=== PATIENT | male | born 1960 | race Caucasian/White ===

== ENCOUNTER → 2017-09-15 | Outpatient (CLI) | payer BC ==
--- NOTE | 2017-09-15 14:03 | CT ---
EXAMINATION TYPE: CT abdomen pelvis wo con DATE OF EXAM: 09/15/2017 COMPARISON: NONE HISTORY: Frequent urination, gross hematuria, Lt groin pain CT DLP: 215.5 mGycm Automated exposure control for dose reduction was used. TECHNIQUE: Helical acquisition of images from the lung bases through the pelvis. FINDINGS: Lack of contrast could compromise sensitivity. LUNG BASES: Minimal basilar atelectatic changes or scarring noted, there is extensive emphysematous c hange, no pleural or pericardial effusion. The heart is small. AORTA: No significant abnormality is appreciated. LIVER/GB: The liver is enlarged. Gallbladder is unremarkable. PANCREAS: No significant abnormality is seen. SPLEEN: No significant abnormality is seen. ADRENALS: No significant abnormality is seen. KIDNEYS: No significant abnormality is seen. REPRODUCTIVE ORGANS: Prostate is enlarged and shows associated calcification. URINARY BLADDER: There is abnormal wall thickening within the bladder, difficult to exclude a mucosa l lesion, findings may be due to chronic outlet obstruction. BOWEL: No significant abnormality is seen. FREE AIR: No Free Air is visible. ASCITES: None visible. PELVIC ADENOPATHY: None visualized. RETROPERITONEAL ADENOPATHY: No Retroperitoneal Adenopathy visible. OSSEOUS STRUCTURES: There is a spinal curvature present. Mild degenerative disc changes in the visua lized spine. There is a disc bulge at L4-5, L5-S1. IMPRESSION: THERE MAY BE CHRONIC BLADDER OUTLET OBSTRUCTION. DIFFICULT TO EXCLUDE A MUCOSAL LESION. CONSIDER UROL OGY CONSULT. CORRELATE TO EXCLUDE CYSTITIS. NONCONTRAST EXAM, ADDITIONAL FINDINGS ABOVE.
== END | disposition home or self-care (01) ==
LOC: RADCTMAIN 12:23
PROVIDERS: ATTEND Nurse Practitioner Adult Health
DX: N20.0 Calculus of kidney (principal)
CPT/HCPCS: 74176

== ENCOUNTER → 2017-09-22 | Outpatient (CLI) | payer BC ==
--- NOTE | 2017-09-22 10:04 | US ---
EXAMINATION TYPE: US prostate transrectal DATE OF EXAM: 09/22/2017 COMPARISON: Prostate ultrasound July 08, 2014. CT abdomen and pelvis September 15, 2017. CLINICAL HISTORY: N40.0 Large Prostate. Hx of enlarged prostate. Increase in urine frequency x 1 wee k. This examination was performed using the transrectal probe. EXAM MEASUREMENTS: Gland Size: 4.9 x 4.5 x 2.6 cm Volume: 29.53 ml Predicted PSA: 3.5 Actual PSA (if available):1.1 Peripheral zone appears heterogenous with no prominent masses or lesions identified. Calcifications seen in central zone. Seminal vesicles are unremarkable initially. Prostate gland remains upper limits of normal in size to mildly enlarged with calcifications and central zone. No worrisome nodules are identified. IMPRESSION: Prostate gland is upper limits of normal to mildly enlarged without discrete nodule. No significant change from prior ultrasound.
== END | disposition home or self-care (01) ==
LOC: RADUSMAIN 08:04
PROVIDERS: ATTEND Nurse Practitioner Adult Health
DX: N40.0 Benign prostatic hyperplasia without lower urinary tract symptoms (principal)
CPT/HCPCS: 76872

== ENCOUNTER → 2019-01-02 | Outpatient (CLI) | payer BC ==
--- NOTE | 2019-01-02 09:52 | CTL ---
EXAMINATION TYPE: CT Low Dose Lung DATE OF EXAM ORDERED: 01/02/2019 HISTORY: Long-term tobacco use.. Lung cancer screening CT DLP: [address] CTDI: 1.84 mGy Automated exposure control for dose reduction was used. SCREENING VISIT: First study COMPARISON: None TECHNIQUE: Low dose computed tomography scan was performed through the chest at 1 mm thick sections a nd reconstructed images in the coronal plane at [address] DIAGNOSTIC QUALITY: Satisfactory FINDINGS: LUNG NODULES: Present, detailed below: A 5 x 3 mm nodule right midlung axial image 184. LUNGS: COPD: Severity: Moderate to borderline severe most prominent in the upper lungs Fibrosis: Severity: Moderate to severe apical changes with bulla and bleb formation. Mild by basilar linear scarring. Lymph nodes: No greater than 1 cm. Other findings: Ascending aorta measures up to 3.5 cm diameter axial image 147. Adjacent main pulmona ry artery measures 2.1 cm in diameter. BILATERAL PLEURAL SPACE: Effusion: None Calcification: None Thickening: None Pneumothorax: None HEART: Heart Size: Normal Coronary calcification: None Pericardial effusion: None OTHER FINDINGS: Upper abdomen: Debris-filled stomach suggest recent meal ingestion. Bony thorax: Dextroconvex scoliosis centered in the mid thoracic spine. Mild to moderate multilevel s purring in the thoracic spine. Supraclavicular region: No suspicious abnormality. Other: None. IMPRESSION: Moderate emphysematous change with 5 x 3 mm right midlung nodule. FOLLOW UP CT CHEST RECOMMENDATION: Annual low-dose lung screening CT. CT LUNG RAD: Lung-Rad 2 Benign Appearance or Behavior
== END | disposition home or self-care (01) ==
LOC: RADCTMAIN 09:09
PROVIDERS: ATTEND Family Medicine
DX: Z12.2 Encounter for screening for malignant neoplasm of respiratory organs (principal); J43.9 Emphysema, unspecified; F17.210 Nicotine dependence, cigarettes, uncomplicated

== ENCOUNTER → 2021-06-29 | Outpatient (CLI) | payer BC ==
[~2021-06-29] MED LIST: SODIUM CHLORIDE 0.9% 50 ML IVPB ONE; SODIUM CHLORIDE 0.9% 500 ML 500 ML in EMPTY BAG 1 BAG IV PRN; SOTROVIMAB (EUA) 500 MG in SODIUM CHLORIDE 0.9% 100 ML IVPB ONE
[2021-06-29 16:20] VITALS: TEMP 98.2
[2021-06-29 16:47] VITALS: RESP 16
[2021-06-29 17:14] VITALS: BP 113/69; PULSE 90
== END ==
LOC: PROCWHC3 16:02
PROVIDERS: ATTEND Physician Assistant
DX: U07.1 COVID-19 (principal)
CPT/HCPCS: 96360; Q0247; M0247

== ENCOUNTER → 2022-07-26 | Outpatient (CLI) | payer BC ==
[2022-07-26 17:55] LABS: Basophils # (A) 0.08 X 10*3/uL (0.00-0.10); Basophils % (A) 1.3 %; Eosinophils # (A) 0.27 X 10*3/uL (0.04-0.35); Eosinophils % (A) 4.2 %; HCT 50.8 % (39.6-50.0); HGB 16.5 g/dL (13.0-17.0); Immature Grans, Automated 0.2 %; Lymphocytes # (A) 1.73 X 10*3/uL (0.90-5.00); Lymphocytes % (A) 27.2 %; MCH 31.7 pg (27.0-32.0); MCHC 32.5 g/dL (32.0-37.0); MCV 97.5 fL (80.0-97.0); Mean Platelet Volume 9.5 fL (9.5-12.2); Monocytes # (A) 0.42 X 10*3/uL (0.20-1.00); Monocytes % (A) 6.6 %; NRBC Per 100 WBC 0 /100 WBCS (0.0-0.0); Neutrophils # (A) 3.86 X 10*3/uL (1.80-7.70); Neutrophils % (A) 60.5 %; Platelet Count 236 X 10*3/uL (140-440); RBC 5.21 X 10*6/uL (4.40-5.60); RDW 11.9 % (11.5-14.5); WBC 6.37 X 10*3/uL (4.50-10.00)
[2022-07-26 17:57] LABS: African American GFR (CKD) 73.5 (60.0-200.0); Non-African American GFR(CKD) 63.4 (60.0-200.0)
[2022-07-26 18:11] LABS: Hepatitis B Surface AB- Quant 3.5 mIU/mL; Hepatitis B Surface Antibody Nonreactive (Nonreactive)
[2022-07-26 23:16] LABS: Hepatitis B Surface Antigen Nonreactive (Nonreactive)
== END | disposition home or self-care (01) ==
LOC: LABWHC1 14:38
PROVIDERS: ATTEND Physician Assistant Medical
DX: L40.0 Psoriasis vulgaris (principal); L40.59 Other psoriatic arthropathy
CPT/HCPCS: 36415; 82565; 84450; 84460; 85025; 86480; 86704; 86706; 87340

== ENCOUNTER → 2022-10-22 | Outpatient (CLI) | payer BC ==
--- NOTE | 2022-10-22 17:46 | CA ---
Stress Echo Report Jim Bush Age: 62 Gender: M : 1960 Exam Date: 10/22/2022 09:31 Exam Location: [facility] Ht (in): 70 Wt (lb): 140 Ordering Physician: James Martines MD Referring Physician: James Martines MD [employer] Butter: Lilibeth Dominique RDCS Technologist Procedure CPT: Indication: R94.31 ABNORMAL EKG ICD-9 Codes: Rhythm: Patient History: Cardiac Medications: Medications in past 24 hours: Contrast: Stress Results Protocol: James Total dose(mL): Exercise Duration (min:sec): 8:[address] Depression (mm): Angina Score: Odom Score: METS: 11.1 Resting HR: 70 Resting BP: 105 / 55 Peak HR: 141 Peak BP: 143 / 70 Max Predicted HR: 160 88 % Max Predicted HR Target HR: 136 Double Product: Stress Summary: The patient's target heart rate was achieved BP Response: Normal Reason for Termination: Reached target heart rate or work-load Cardiac Symptoms: ECG Analysis Resting ECG: Stress ECG: Arrhythmia: Echo Analysis Resting Echo: Peak Echo Analysis: MEASUREMENTS (Male/Female) Normal Values CONCLUSIONS Patient underwent exercise stress echo with a James protocol treadmill stress test. Patient exercised into Stage 3 for a total of 9 minutes and 30 seconds reaching a total of 11.1 METS. Patient's maximum heart rate was 141 which represented 88% age- predicted maximum heart rate. Stress EKG portion: At baseline patient's EKG showed normal sinus rhythm, normal axis, no significant ST or T wave abnormalities. At peak exercise, EKG showed nondiagnostic 0.[address] depressions V3 through V6. Stress echo portion: 2-D echocardiogram was performed in the parasternal long, personal short, apical 2 and apical four-chamber views at rest, peak exercise and in recovery. At baseline, echocardiogram showed left ventricular ejection fraction 55% without wall motion abnormalities. With peak exercise, echocardiogram shows improvement in left ventricular ejection fraction, increase contractility, decrease in left ventricular end systolic dimension without wall motion abnormalities consistent with a normal response to exercise. Conclusions: 1. Normal EKG and echo response to exercise without evidence of inducible ischemia. 2. Fair exercise capacity. Dr. Neal Reynoso DO (Electronically Signed) Final Date: 22 October 2022 17:45
== END | disposition home or self-care (01) ==
LOC: RADNMMAIN 09:12
PROVIDERS: ATTEND Family Medicine
DX: R94.31 Abnormal electrocardiogram [ECG] [EKG] (principal)
CPT/HCPCS: 93351

== ENCOUNTER → 2023-08-22 | Outpatient (CLI) | payer BC ==
--- NOTE | 2023-08-22 12:53 | CTL ---
EXAMINATION TYPE: CT Low Dose Lung DATE OF EXAM ORDERED: 08/22/2023 HISTORY: Tobacco use. Lung cancer screening CT DLP: [address] CTDI: 1.8 mGy Automated exposure control for dose reduction was used. SCREENING VISIT: Subsequent COMPARISON: 01/02/2019 TECHNIQUE: Low dose computed tomography scan was performed through the chest at 1 mm thick sections a nd reconstructed images in the coronal plane at [address] DIAGNOSTIC QUALITY: Limited, but interpretable FINDINGS: LUNG NODULES: None. Scarring at the lung apices appears stable. Large emphysematous blebs and bulla are present greater o n the right in the upper lung platt. LUNGS: COPD: Severity: Severe Fibrosis: Severity: None Lymph nodes: None Other findings: None RIGHT PLEURAL SPACE: Effusion: None Calcification: None Thickening: None Pneumothorax: None LEFT PLEURAL SPACE: Effusion: None Calcification: None Thickening: None Pneumothorax: None HEART: Heart Size: Normal Coronary calcification: None Pericardial effusion: None OTHER FINDINGS: Upper abdomen: Normal Bony thorax: Normal Supraclavicular region: Normal Other: Ascending thoracic aorta at the level the main pulmonary artery measures 3.8 cm. The main pul monary artery at the bifurcation measures 2.1 cm. IMPRESSION: 1. Benign findings 2. Advanced COPD FOLLOW UP CT CHEST RECOMMENDATION: Follow-up low-dose CT chest one year CT LUNG RAD: Lung-Rad 2 Benign Appearance or Behavior
== END | disposition home or self-care (01) ==
LOC: RADCTMAIN 11:56
PROVIDERS: ATTEND Family Medicine
DX: Z12.2 Encounter for screening for malignant neoplasm of respiratory organs (principal); F17.210 Nicotine dependence, cigarettes, uncomplicated
CPT/HCPCS: 71271